=== PATIENT | female | born 1975 | race Caucasian/White ===

== ENCOUNTER → 2016-08-06 | Outpatient (REF) | payer MEDICAID ==
[2016-08-06 13:23] LABS: MEAN CORPUSCULAR HEMOGLOBIN 32.9 pg (27.0-33.0); MEAN CORPUSCULAR HGB CONC 33.8 g/dl (32.0-36.5); MEAN CORPUSCULAR VOLUME 97.3 fl (80.0-96.0); RED CELL DISTRIBUTION WIDTH 13.4 % (11.5-14.5)
[2016-08-06 13:56] LABS: HCG, SERUM QUANTITATIVE 3915 MIU/ML
[2016-08-09 10:05] LABS: WHITE BLOOD COUNT 6.4 K/mm3 (4.0-10.0)
== END ==
LOC: M LAB REF 12:55
PROVIDERS: ATTEND Obstetrics & Gynecology
DX: Z36 Encounter for antenatal screening of mother (principal); Z3A.00 Weeks of gestation of pregnancy not specified

== ENCOUNTER 2016-08-10 11:18 | Outpatient (CLI) | payer MEDICAID ==
[~2016-08-10] VITALS: Ht 175.3 cm; Wt 111.0 kg
[2016-08-10 11:30] VITALS: BP 115/67
[2016-08-10 11:31] VITALS: BP 115/67
[2016-08-10] MEDS ORDERED: LR 1,000 ML IV SCH (12:00)
[2016-08-10] MEDS ORDERED: LR 1,000 ML IV ONE (12:00)
[2016-08-10 12:37] VITALS: BP 127/67
[2016-08-10 12:43] LABS: MEAN CORPUSCULAR HEMOGLOBIN 33.2 pg (27.0-33.0); MEAN CORPUSCULAR HGB CONC 34.1 g/dl (32.0-36.5); MEAN CORPUSCULAR VOLUME 97.3 fl (80.0-96.0); RED CELL DISTRIBUTION WIDTH 13.5 % (11.5-14.5); WHITE BLOOD COUNT 6.5 K/mm3 (4.0-10.0)
[2016-08-10 13:09] LABS: ALBUMIN 2.3 GM/DL (3.2-5.2); ALBUMIN/GLOBULIN RATIO 0.61 (1.00-1.93); ALKALINE PHOSPHATASE 192 U/L (45-117); ALT/SGPT 14 U/L (12-78); ANION GAP 7 MEQ/L (8-16); AST/SGOT 15 U/L (15-37); BILIRUBIN,TOTAL 0.4 MG/DL (0.2-1.0); BLOOD UREA NITROGEN 8 MG/DL (7-18); CALCIUM LEVEL 8.4 MG/DL (8.5-10.1); CARBON DIOXIDE LEVEL 24 MEQ/L (21-32); CHLORIDE LEVEL 107 MEQ/L (98-107); CREATININE FOR GFR 0.37 MG/DL (0.55-1.02); GLOMERULAR FILTRATION RATE > 60.0 (>60); GLUCOSE, FASTING 79 MG/DL (70-105); SODIUM LEVEL 138 MEQ/L (136-145); TOTAL PROTEIN 6.1 GM/DL (6.4-8.2); URIC ACID 3.8 MG/DL (2.6-6.0)
[2016-08-10 13:59] VITALS: BP 143/67
== END 2016-08-10 14:05 | disposition home or self-care (01) ==
LOC: M LDO 11:18
PROVIDERS: ATTEND Obstetrics & Gynecology
DX: O41.03X1 Oligohydramnios, third trimester, fetus 1 (principal); O09.33 Supervision of pregnancy with insufficient antenatal care, third trimester; O09.513 Supervision of elderly primigravida, third trimester; Z3A.37 37 weeks gestation of pregnancy

== ENCOUNTER → 2016-08-10 | Outpatient (CLI) | payer MEDICAID ==
[~2016-08-10] MED LIST: ACET50TA PO; IBUP-1114 PO; PRENTAB9 PO
--- NOTE | 2016-08-10 12:32 | REP ---
Obstetric ultrasound for anatomy: There is a single intrauterine gestation in a vertex presentation. There is movement and cardiac activity. The heart rate is 152 beats per minute. The placenta is anterior / right lateral with no previa or abruptio and is grade three maturity. The amniotic fluid volume subjectively appears OLIGOHYDRAMNIOS. The cervix is 3.9 cm. Maternal adnexa and cul-de-sac are unremarkable. By today's ultrasound the gestational age is 38 weeks 3 days with an JOSE RAFAEL of 08/21/2016. weight is 3563 grams (7 pounds, 13 ounces). This is the 65th percentile for 38 weeks 3 days. Amniotic fluid index is 4.9 this centimeters (7.3 - 20 3.4). This is compatible with OLIGOHYDRAMNIOS. biophysical profile: breathing two movement two tone two and a fluid volume two total eight out of eight. Umbilical artery Doppler assessment: SD ratio 1.98 (2.80 - 3.80). Resistive index is 0.49. End diastolic flow velocity 25.1 cm/sec. Evaluation of anatomy is suboptimal during the third trimester, however, during the examination were identified. Normal appearing cranium, cavum septum pellucidum, diaphragm, stomach and bladder. Remainder of the anatomy was suboptimally demonstrated. Signed by Mike Thacker MD 08/10/2016 12:24 P
== END ==
LOC: M RAD 09:51
PROVIDERS: ATTEND Obstetrics & Gynecology
DX: Z36 Encounter for antenatal screening of mother (principal); Z3A.38 38 weeks gestation of pregnancy

== ENCOUNTER 2016-08-11 12:20 | Outpatient (CLI) | payer MEDICAID ==
[~2016-08-11] VITALS: Ht 175.3 cm; Wt 112.0 kg
--- NOTE | 2016-08-11 14:31 | REP ---
Limited obstetric sonography: History: well-being at 38 weeks 4 days biophysical profile and amniotic fluid assessment. Findings: Scanning demonstrates a viable cephalic single intrauterine gestation. An anterior placenta is seen grade 3 without evidence of previa. SD ratio umbilical cord are by Doppler is normal at 2.6. Amniotic fluid is subjectively decreased. YVROSE is decreased at 2.3 cm. Biophysical profile score six out of a possible eight with zero scored for amniotic fluid volume. heart rate is recorded 147 beats per minute. Closed cervical length is 3.1 cm measured transabdominally. Impression: Oligohydramnios. 09/30 biophysical profile. Signed by Dereje Mallory MD 08/11/2016 02:22 P
[2016-08-11] MEDS ORDERED: LR 1,000 ML IV SCH (14:48)
[2016-08-11] MEDS ORDERED: OXYTOCIN DRIP 30 UNITS in APPROPRIATE DILUENT 1 EA IV SCH (15:00)
== END 2016-08-11 15:18 | disposition home or self-care (01) ==
LOC: M LDO 12:20
PROVIDERS: ATTEND Obstetrics & Gynecology
DX: O41.03X1 Oligohydramnios, third trimester, fetus 1 (principal); O09.33 Supervision of pregnancy with insufficient antenatal care, third trimester; O09.523 Supervision of elderly multigravida, third trimester; Z3A.38 38 weeks gestation of pregnancy

== ENCOUNTER 2016-08-11 16:36 | Inpatient (IN) | payer MEDICAID ==
[2016-08-11] VITALS (15 sets, daily range): BP systolic 98–135; BP diastolic 51–66
[~2016-08-11] VITALS: Ht 175.3 cm; Wt 112.0 kg
[2016-08-11] MEDS ORDERED: OXYTOCIN DRIP 30 UNITS in APPROPRIATE DILUENT 1 EA IV SCH (17:15)
[2016-08-11] MEDS ORDERED: AMPICILLIN SOD 2 GM in D5W MINI-BAG PLUS 100 ML IV ONE (17:45)
[2016-08-11] MEDS: LR 1,000 ML IV SCH (18:12)
[2016-08-11 18:19] LABS: MEAN CORPUSCULAR HEMOGLOBIN 33.7 pg (27.0-33.0); MEAN CORPUSCULAR HGB CONC 35.1 g/dl (32.0-36.5); MEAN CORPUSCULAR VOLUME 96.1 fl (80.0-96.0); RED CELL DISTRIBUTION WIDTH 13.4 % (11.5-14.5); WHITE BLOOD COUNT 6.5 K/mm3 (4.0-10.0)
[2016-08-11] MEDS: AMPICILLIN SOD 1 GM in D5W MINI-BAG PLUS 50 ML IV SCH (22:50)
[2016-08-12] VITALS (38 sets, daily range): BP systolic 104–139; BP diastolic 51–88
[2016-08-12] MEDS: LR 1,000 ML IV SCH ×2 (01:11→10:41)
[2016-08-12] MEDS: AMPICILLIN SOD 1 GM in D5W MINI-BAG PLUS 50 ML IV SCH ×3 (02:52→10:41)
[2016-08-12] MEDS ORDERED: ANUSOL HC CREAM 30GM TOP PRN (12:15)
[2016-08-12] MEDS ORDERED: DIBUCAINE 1% OINTMENT 30GM TOP PRN (12:15)
[2016-08-12] MEDS ORDERED: IBUPROFEN 800 MG TAB PO PRN (12:15)
[2016-08-12] MEDS ORDERED: MEASLES,MUMPS,RUBELLA VACCINE INJ (MMR-II) (90707) SC SCH (12:15)
[2016-08-12] MEDS ORDERED: METHYLERGONOVINE MALEATE 0.2 MG TAB PO PRN (12:15)
[2016-08-12] MEDS ORDERED: RHOGAM 300 MCG (1500 IU) INJ (J2790) IM SCH (12:15)
[2016-08-12] MEDS ORDERED: DOCUSATE SODIUM 100 MG CAP PO PRN (12:15)
[2016-08-12] MEDS ORDERED: OXYTOCIN INJ 10 UNITS/ML VIAL (J2590) IM ONE (12:15)
[2016-08-12] MEDS ORDERED: ACETAMINOPHEN 500 MG TAB PO PRN (12:15)
--- NOTE | 2016-08-12 12:21 | DNPDOC ---
[facility] Delivery Note Delivery Note Linnea is a 40-year-old female now a G 8 P 8008 at 38.5 weeks' gestation based off of a third trimester ultrasound at 38 weeks 3 days gestation with an JOSE RAFAEL of 08/21/2016 who presented to labor and delivery for induction of labor due to oligo hydramnios. Patient had limited OB care, 1 visit. She progressed to fully dilated at 1125 with the use of Pitocin and AROM as method for induction. Patient pushed to a spontaneous vaginal delivery at 11:30 to a living male in the OUMAR position with restitution to L OT. Shoulders delivered with ease and the corpus immediately followed. Baby placed on maternal abdomen crying and active. Cord clamped 2 and cut by patient's daughter after pulsation ceased. Spontaneous delivery of intact placenta with a three-vessel cord by Santiago mechanism at 1144. Uterine hemostasis achieved by rapid infusion of IV Pitocin ( 200 cc left in the bag), 10 mg of IM Pitocin, and uterine fundal massage. Perineum and vagina inspected and found to have a right labial laceration that was not bleeding. EBL for 50. 's 9/9. Weight 7 lbs. 2 oz., 3234 g. Amo's name Charlie and is bottlefeeding. Mom and baby are stable. ADONAY BOWLING CNM Aug 12, 2016 12:21
[2016-08-12] MEDS: PRENATAL VITAMIN TAB PO SCH (14:40)
[2016-08-13 05:39] VITALS: BP 119/53
[2016-08-13] MEDS: PRENATAL VITAMIN TAB PO SCH (09:09)
[2016-08-13] MEDS ORDERED: IBUP-1114 PO (14:40)
[2016-08-13] MEDS ORDERED: PRENTAB9 PO (14:40)
[2016-08-13] MEDS ORDERED: ACET50TA PO (14:40)
== END 2016-08-13 16:39 | disposition home or self-care (01) | DRG 560 ==
LOC: M LDI 16:36 → M OBS 08-12 14:33
PROVIDERS: ADMIT Obstetrics & Gynecology; ATTEND Advanced Practice Midwife
PROC: 3E033VJ Introduction of Other Hormone into Peripheral Vein, Percutaneous Approach (ICD-10-PCS; 2016-08-11)
PROC: 10E0XZZ Delivery of Products of Conception, External Approach (ICD-10-PCS; principal; 2016-08-12)
PROC: 10907ZC Drainage of Amniotic Fluid, Therapeutic from Products of Conception, Via Natural or Artificial Opening (ICD-10-PCS; 2016-08-12)
DX: O41.03X0 Oligohydramnios, third trimester, not applicable or unspecified (principal); F17.210 Nicotine dependence, cigarettes, uncomplicated; Z3A.38 38 weeks gestation of pregnancy; O99.824 Streptococcus B carrier state complicating childbirth; Z37.0 Single live birth; O99.334 Smoking (tobacco) complicating childbirth; O70.0 First degree perineal laceration during delivery